=== PATIENT | male | born 1985 | race Caucasian/White ===

== ENCOUNTER 2024-07-23 13:23 | Emergency (ER) | payer SELFPAY ==
[~2024-07-23] VITALS: Ht 177.8 cm; Wt 72.0 kg
[2024-07-23 13:26] VITALS: O2SAT 99
[2024-07-23] MEDS ORDERED: IBUP-2028 MT (13:53)
[2024-07-23 15:04] VITALS: BP 124/85; PULSE 88; RESP 18; O2SAT 99
== END 2024-07-23 15:08 | disposition home or self-care (01) ==
LOC: ER 13:23
DX: L84 Corns and callosities (principal); J45.909 Unspecified asthma, uncomplicated
CPT/HCPCS: 99283